=== PATIENT | male | born 1970 | race Two or more races ===

== ENCOUNTER 2024-12-23 13:32 | Outpatient (AMB) | payer MEDICARE, MEDICAID, SELFPAY ==
--- OUTSIDE RECORDS SUMMARY | 2024-12-22 13:15 | XMS_ITS | Encounter Summary ---
Author Organization [facility] Address [address] [place] [address] Care Team Providers Care Auto Body Mechanic Name Role Phone Charlotte Galaviz MD Primary Care Prov ider Reason for Referral * Consultation (Routine) - Denied Specialty Diagnoses / Procedures Referred By Contsita t Referred To Contact Gastroenterology Diagnoses Screening for malignant neoplasm of colon Brina Walker PA [address] [place] [address] Phone: tel: fax: Gastroenterology [facility] 175 [facility] [address] [address] Phone: tel: fax: Referral ID Status Reason Start Date Expiration Date V isits Requested Visits Authorized [id number] Denied Specialty Services Required 12/22/2024 12/22/2025 1 0 Reason for Visit * Reason Comments Follow-up 6 month htn f/u Encounter Details Date Type Department Care Team ([facility] st Contact Info) Description 12/22/2024 1:15 PM EST Office Visit Adult Medicine [address] [phone] Brina Walker PA [address] [place] [address] Primary hypertension (Primary Dx); Mixed hyperlipidemia; Gastroesophageal reflux disease, unspecified whether esophagitis present; Screening for malignant neoplasm of colon Social History Tobacco Use Types Packs/Day Years Used Date Smoking Tobacco: Never Smokeless Tobacco: Never Alcohol Use Standard Drinks/Week Comments No 0 (1 standard drink = 0.6 oz pur e alcohol) Housing Instability Answer Date Recorde d Are you worried that in the next 2 months you may not have stable housing? No 09/09/2024 Food Access & Nutrition Answer Date Rec orded Do you have access to a vari ety of food including fruits and vegetables? Yes 09/09/2024 Health Literacy Answer Date Recorded How often do you need to hav e someone help you when you read instructions, pamphlets, or other written material from your doctor or pharmacy? Never 09/09/2024 Caregiver: How often do you need to have someone help you when you read instructions, pamphlets, or other written material from your doctor or pharmacy? Not on file 09/09/2024 Financial Risk Answer Date Recorded How hard is it for you to pa y for the very basics like food, housing, medical care, and air conditioning / heating? Not very hard 09/09/2024 Transportation Answer Date Recorded Has the lack of transportati on kept you from meetings, work, or from getting things needed for daily living? No Has the lack of transportati on kept you from medical appointments or from getting medications? No 09/09/2024 Social Isolation Answer Date Recorded How often do you feel lonely or isolated from th ose around you? Never 09/09/2024 Food Risk Answer Date Recorded Within the past 12 months we worried whether our food would run out before we got money to buy more. Never true 09/09/2024 Within the past 12 months th e food we bought just didn't last and we didn't have money to get more. Never true 09/09/2024 Dependent Care Answer Date Recorded Do you need help finding or paying for care for your loved ones. For example, child care sitter or elderly care for an older adult? No 09/09/2024 Education Answer Date Recorded Do you think completing more education or training, like finishing a GED, going to college, or learning a trade, would be helpful for you? No 09/09/2024 Employment and Income Answer Date Recor ded During the last four weeks, have you been actively looking for work? No 09/09/2024 Living Situation Answer Date Recorded What is your living situation? Unrecognized valu e 09/09/2024 Sex and Gender Information Value Date Recorded Sex Assigned at Not on file Legal Sex Male 4:48 PM EST Gender Identity Not on file Sexual Orientation Not on file documented as of this encounter Last Filed Vital Signs Vital Sign Reading Time Taken Comments Blood Pressure 139/79 12/22/2024 1:16 PM EST Pulse 72 12/22/2024 1:16 PM EST Temperature 35.7 C (96.3 F) 12/22/2024 1:16 PM EST Respiratory Rate 16 12/22/2024 1:16 PM EST Oxygen Saturation 97% 12/22/2024 1:16 PM EST Inhaled Oxygen Concentration - - Weight 70.2 kg (154 lb 12.8 oz) 12/22/2024 1:16 PM EST Height 167.6 cm (5' 6 ) 12/22/2024 1:16 PM EST Body Mass Index 24.99 12/22/2024 1:16 PM EST documented in this encounter Patient Instructions * Attachments The following attachments cannot be sent through Care Everywhere. * Healthy Diet: Heart (Barbadian) documented in this encounter Progress Notes * APARNA Hopkins - 12/22/2024 1:15 PM EST CHIEF COMPLAINT: Follow-up (6 month htn f/u) IDENTIFIER: Valdemar Barroso is a 54 y.o. old male. HPI: Valdemar presents today for reevaluation and management of hypertension, hyperlipidemia, and GERD. His medication regimen includes verapamil 180 mg daily, pravastatin 40 mg daily, pantoprazole 40 mg daily and aspirin 81 mg and he reports compliance with medications. Most recent LDL cholesterol is subo ptimally controlled with most recent value of 129. Lab work is currently up to date. Valdemar is not regularly checking blood pressures at home. Denies nausea, vomiting, fever, chills, chest pain, shortness of breath, abdominal pain, diarrhea, constipation, headache, nosebleeds, changes in vision, dizziness, or palpitations. He is up to date with eye services and sees [facility] ([place], [place]). He is notformally exercising regularly, but notes that he is very active and often playing with his grandson. His diet is as shown as below: Breakfast: Eggs with crackers. Coffee with sugar Lunch: Fruit Dinner (3PM): Rice, beans, pork, wings Snacks: nothing Drinks: Water. Coca Cola 1 can daily. No juice. No alcohol. No energy drinks. ROS: GENERAL: No malaise, significant weight loss or fever HEENT: No changes in hearing or vision, nose bleeds or other nasal problems RESPIRATORY: No cough, wheezing or shortness of breath CARDIOVASCULAR: No chest pain, leg swelling or palpitations GI: No abdominal discomfort, blood in stools or black stools ENDOCRINE: No cold or heat intolerance, polyuria, polydipsia and goiter MUSCULOSKELETAL: No joint pain or swelling, back pain, or muscle pain. NEURO: No persistent headache, syncope, seizures, weakness or numbness PAST MEDICAL HISTORY: Patient Active Problem List Diagnosis Date Noted Overactive bladder 10/04/2020 Normocytic anemia 12/23/2018 Occipital neuralgia of left side 11/21/2018 DJD (degenerative joint disease), lumbar 11/21/2018 Bilateral shoulder pain 11/21/2018 Bilateral hip pain 11/21/2018 GERD (gastroesophageal reflux disease) 07/28/2016 Chronic non-specific white matter lesions on MRI 05/08/2016 Erectile dysfunction 11/01/2015 Anxiety 12/08/2011 Depression 10/31/2011 HTN (hypertension) 06/12/2011 Hyperlipidemia 02/27/2011 Neck pain 08/17/2008 Headache 08/17/2008 Brain concussion 08/17/2008 SOCIAL HISTORY: Social History Tobacco Use Smoking status: Never Smokeless tobacco: Never Substance Use Topics Alcohol use: No FAMILY HISTORY: Family Status Relation Name Status Mother Alive DM, depression Father Alive DM, depression Sister Alive Daughter Alive congenital heart problems Son Alive Daughter Alive No partnership data on file Family History[1] ACTIVE MEDICATIONS: Medications Taking[2] ALLERGIES: Patient has no known allergies. PHYSICAL EXAM: Blood pressure 139/79, pulse 72, temperature 35.7 ??C (96.3 ??F), temperature source Temporal, resp. rate 16, height 1.676 m (66 ), weight 70.2 kg (154 lb 12.8 oz), SpO2 97%. Body mass index is 24.99kg/m??. BMI is 18.5 to 24.9 (within the normal range) and will be followed APPEARANCE: Alert and in no acute distress EYES: EOMI. No papilledema HEART: RRR with normal S1 and S2, no murmurs, no gallops, NECK: No bruits LUNG: clear to auscultation ABDOMEN: soft, non-tender, without organomegaly or palpable masses EXTREMITIES: Extremities warm and well perfused without clubbing, cyanosis, or edema NEURO: Awake, alert and oriented x 3 LABS: Lab Results Component Value Date NA 139 12/15/2024 K 4.0 12/15/2024 CL 105 12/15/2024 CO2 28 12/15/2024 GLUCOSE 90 12/15/2024 BUN 14 12/15/2024 CREATININE 1.00 12/15/2024 CALCIUM 9.0 12/15/2024 PROT 7.1 12/15/2024 ALBUMIN 4.1 12/15/2024 BILITOT 0.4 12/15/2024 AST 28 12/15/2024 ALT 40 12/15/2024 ALKPHOS 67 12/15/2024 EGFR 89 12/15/2024 Lab Results Component Value Date CHOL 201 (H) 12/15/2024 TRIG 132 12/15/2024 HDL 46 12/15/2024 LDLCALC 129 (H) 12/15/2024 VLDL 26.4 12/15/2024 NONHDLC 155 (H) 12/15/2024 CHOLHDL 4.4 12/15/2024 IMPRESSION: 1. Primary hypertension 2. Mixed hyperlipidemia 3. Gastroesophageal reflux disease, unspecified whether esophagitis present 4. Screening for malignant neoplasm of colon PLAN: . Primary hypertension/hyperlipidemia/GERD: Patient's hypertension is well controlled with blood pressure as shown above. LDL cholesterol is suboptimally controlled with goal of less than 160 and goal of 100 if on cholesterol lowering medication. Current regimen includes verapamil 180 mg daily, pravastatin 40 mg daily, pantoprazole 40 mg daily and aspirin 81 mg and no changes have been made. Valdemar has been encouraged to follow a diet low in saturated fat, low in carbohydrates, and low in sodium. He has been encouraged to try to get 30 minutes of exercise 4 to 5 days a week to their tolerance. Patient is educated to call the office if he develops headaches, nosebleeds, chest pain, palpi tations, changes in vision or if his blood pressure is greater than 140/90 for 3 consecutive days, as he should be seen sooner than routine follow-up in office. He is educated to report to the ED if his blood pressure is greater than 140/90 and there are associated symptoms of chest pain, shortnessof breath, palpations, or abrupt changes in vision. If blood pressure is <100/60 patient should hold verapamil. His reflux seems to be well-controlled on his pantoprazole 40 mg. No new changes made today. He understands to avoid his food triggers. Patient will require a 6 month follow up in office with primary care provider for re-evaluation and management of hypertension. Patient's questions t chad answered to the best of my ability. Patient understands and agrees to this plan and acknowledges to contact me with any additional questions or concerns. Myself and my colleagues maintained a long-term, longitudinal relationship with this patient, overseeing care of chronic conditions including hypertension, hyperlipidemia, and GERD. This care relationship has significantly influence my decision making and treatment plans during today's encounter. 4. Due for colonoscopy. Patient agrees to have this completed. Referral placed. Medication and lab orders: Orders Placed This Encounter Procedures Ambulatory referral to Gastroenterology AMB REFERRAL TO GASTROENTEROLOGY Brina Walker PA-C on 12/22/2024 at 1:30 PM EST [1] Family History Problem Relation Name Age of Onset Other (Other: renal issues) Mother Diabetes Father [2] Outpatient Medications Marked as Taking for the 12/22/24 encounter (Office Visit) with APARNA Hopkins Medication Sig Dispense Refill aspirin 81 mg EC tablet TAKE 1 TABLET BY MOUTH EVERY DAY 90 tablet 0 buPROPion XL (WELLBUTRIN XL) 300 mg 24 hr tablet Take 1 tablet (300 mg total) by mouth 1 (one) timeeach day in the morning. clotrimazole (LOTRIMIN) 1 % cream APPLY TOPICALLY TO THE AFFECTED AREA TWICE DAILY 90 g 0 diclofenac (VOLTAREN) 1 % topical gel Apply 4 g topically 2 (two) times a day if needed (hip pain).100 g 1 hydrOXYzine pamoate (VISTARIL) 25 mg capsule lamoTRIgine (LaMICtal) 25 mg tablet Take 1 tablet (25 mg total) by mouth. oxyCODONE-acetaminophen (PERCOCET) 5-325 mg per tablet Take 1 tablet by mouth. pantoprazole (PROTONIX) 40 mg EC tablet TAKE 1 TABLET BY MOUTH DAILY 90 tablet 0 pravastatin (PRAVACHOL) 40 mg tablet TAKE 1 TABLET BY MOUTH DAILY 90 tablet 0 SUMAtriptan (IMITREX) 50 mg tablet May repeat dose once after 2 hours, if needed. traZODone (DESYREL) 150 mg tablet 1 tablet (150 mg total). verapamil SR (CALAN-SR) 180 mg CR tablet TAKE 1 TABLET BY MOUTH DAILY 90 tablet 1 zolpidem (AMBIEN) 10 mg tablet Take by mouth. documented in this encounter Plan of Treatment Upcoming Encounters Date Type Department Care Team (Late st Contact Info) Description 06/22/2025 2:30 PM EDT Office Visit Adult Medicine [address] [phone] Charlotte Galaviz MD [address] [place] [address] Scheduled Referrals Name Type Priority Associated Diagnoses Order Schedule Ambulatory referral to Gastroenterology Outpatient Referral Routine Screening for malignant neoplasm of colon 1 Occurrences starting 12/22/2024 until 12/22/2025 documented as of this encounter Visit Diagnoses Diagnosis Primary hypertension- Primary Unspecified essential hypertension Mixed hyperlipidemia Gastroesophageal reflux disease, unspecified whether esophagitis present Screening for malignant neoplasm of colon documented in this encounter Historical Medications * This list may reflect changes made after this encounter. oxyCODONE-acetami nophen (PERCOCET) 5-325 mg per tablet Take 1 tablet by mouth. 12/19/2024 added in this encounter Additional Health Concerns Assessment Noted Time PHQ-9 Depression Total Score: 0 09/10/19 25 9:10 AM EDT documented as of this encounter Care Teams Auto Body Mechanic Relationship Specialty Start Date End Date Charlotte Galaviz MD [address] [place] [address] PCP - General 01/23/22 documented as of this encounter
--- NOTE | 2024-12-23 13:37 | A.PHYSOV ---
Vital Signs 12/23/24 13:38 Height 5 ft 6 in Weight 154 lb BMI 24.9 Intake Visit Reasons: 3M FUV and F/U after injection 10/20/2024 Intake Note: Patient is a 54 year old male in office today for a 3 month narcotic contract follow up and follow up after injection 10/20/24 Caudal Epidural Injection. Patient is now having right hip pain. Mortgage Manager Required: No Allergies No Known Allergies Allergy (Verified 12/23/24 13:37) HPI Comments Details: History of Present Illness The patient is a 54-year-old male presenting with chronic lower back pain and lumbar radiculitis. The condition has been managed with oxycodone, providing a 60 to 70% reduction in pain, which has improved his quality of life and functional abilities. He has been receiving lumbar epidural, caudal and L5 transforaminal injections, which have been effective in providing pain relief. The most recent lumbar sacral spine MRI, dated April 05, 2018, showed L5-S1 neuroforaminal narrowing and disc degeneration, as well as narrowing of both neural foramina at the L4-L5 level. The patient was last seen on October 20, 2024, when he received a repeat caudal epidural injection. Overall he is feeling better. He reports persistent pain on the right side, exacerbated by walking, and is considering further injections to manage this. He is up-to-date on his pain medication. Prescription monitoring report was reviewed. Patient continues to performed physician guided home exercises in addition to utilization of pain medications. Right-sided buttock level of pain 6/10 at this time. I reviewed his notes from our practice. Reviewed independently images of the lumbosacral spine MRI described below. Reviewed primary care notes. Pain Description - Onset: Chronic pain with ongoing management - Quality: Severe pain managed with medication - Location: Lower back, with right-sided exacerbation - Radiation: Pain radiates down the right side - Exacerbating factors: Walking increases pain - Relieving factors: Oxycodone and injections provide relief Results - MRI (April 05, 2018): L5-S1 neuroforaminal narrowing, disc degeneration, L4-L5 foraminal narrowing [facility] Medical History (Updated 12/23/24 @ 13:49 by Curt Arciniega DO) Spinal stenosis, lumbar region with neurogenic claudication Lumbar radiculitis Surgical History History of shoulder surgery (Unknown) History of knee surgery (Unknown) Social History Alcohol intake: current Alcohol intake frequency: does not drink Patient Tobacco Use Status: Never used Tobacco Current occupational status: unemployed Review of Systems Narrative Review of Systems Lower back pain, bilateral leg pain, right worse than left, denies change in bowel bladder habits, denies fever or chills, denies uncontrolled depression or suicidal ideation Physical Exam Exam Exam: Physical Exam Patient appears to be in no acute distress, appropriately conversant oriented. He ambulates without antalgia and was able to perform heel walk and toe walk. Dural tension signs were negative. SI provocative maneuvers were negative. Tenderness with palpation over of both gluteus medius muscles, right worse than left. Neurological examination was nonfocal. Patient demonstrated no upper motor neuron signs. Lumbar extension was restricted. Vital Signs: BMI result Body Mass Index 24.9 Assessment & Plan Assessment & Plan (1) Lumbar radiculitis: Code(s): M54.16 - Radiculopathy, lumbar region Category: Medical (2) Spinal stenosis, lumbar region with neurogenic claudication: Code(s): M48.062 - Spinal stenosis, lumbar region with neurogenic claudication Category: Medical Plan Pain Management - Affect: Pain impacts quality of life and function positively with treatment - Analgesia: Oxycodone provides 60-70% pain reduction - Adverse Effects: None reported - Activities of Daily Living: Improved ability to function - Aberrant Drug Related Behaviors: None reported, patient is compliant with medication use Plan Patient was informed and verbally consented to the use of an ambient scribe for clinic note documentation during this visit. 1. Chronic Lumbar Radiculitis The patient will continue with oxycodone for pain management, which has been effective in reducing pain by 60-70%. Further lumbar epidural injections are planned, with a bilateral L5 transforaminal injection scheduled after the holidays to address persistent right-sided pain. Approval from [facility] insurance is required for the procedure, and scheduling will be coordinated with [facility]. Risks and benefits of the procedure were discussed with the patient. Potential alternative measures were also discussed. Patient understands that the procedure is completely elective. Potential side effects associated with injectable medications were discussed. All questions were answered to the patient's satisfaction. 2. Chronic Lower Back Pain The patient will continue with current pain management strategies, including oxycodone and periodic injections, to maintain pain relief and functional improvement. The plan includes monitoring the effectiveness of these interventions and adjusting as necessary based on the patient's response and insurance approvals. Discussion Notes During the visit, we discussed the continuation of oxycodone for pain management, which has been effective in reducing pain by 60-70%. We also planned for further lumbar epidural injections, specifically a bilateral L5 transforaminal injection, to be scheduled after the holidays. I explained the need for insurance approval from [facility] and the coordination required with [facility] for the procedure. Patient Instructions - Continue taking oxycodone as prescribed for pain management. - Schedule and attend the bilateral L5 transforaminal injection after the holidays. - Ensure insurance approval is obtained for the procedure. - Follow up in three months for a routine check-up. Orders: Referrals Physiatry Procedure Notification M48.062 - Spinal stenosis, lumbar region with neurogenic claudication, M54.16 - Radiculopathy, lumbar region Coding Level of Care Code Est Pt Level 3 (99349) Complex EM visit Add On G2211 Diagnoses Lumbar radiculitis M54.16 Spinal stenosis, lumbar region with neurogenic claudication M48.062
[2024-12-23 13:38] VITALS: BMI 24.9
--- OUTSIDE RECORDS SUMMARY | 2024-12-24 06:54 | XMS_ITS | Encounter Summary ---
Author Organization [facility] Address [address] [place] [address] Care Team Providers Care Regional Flatbed Truck Driver Name Role Phone Charlotte Galaviz MD Primary Care Prov ider Encounter Details Date Type Department Care Team ([facility] Contact Info) Description 12/16/2024 Results Follow-Up Adult Medicine [address] [phone] Charlotte Galaviz MD [address] [place] [address] Social History Tobacco Use Types Packs/Day Years [...] your loved ones. For example, child care center assistant director or elderly care for an older adult? [...] on file documented as of this encounter Plan of Treatment Upcoming Encounters Date Type Department Care Team (Late st Contact Info) Description 06/22/2025 2:30 PM EDT Office Visit Adult Medicine [address] [phone] Charlotte Galaviz MD [address] [place] [address] documented as of this encounter Visit Diagnoses Not on filedocumented in this encounter Additional Health Concerns Assessment Noted Time PHQ-9 Depression Total Score: 0 09/10/19 25 9:10 AM EDT documented as of this encounter Care Teams Regional Flatbed Truck Driver Relationship Specialty Start Date End Date Charlotte Galaviz MD [address] [place] [phone] PCP - General 01/23/22 documented as of this encounter
--- OUTSIDE RECORDS SUMMARY | 2024-12-24 06:55 | XMS_ITS | Clinical Summary ---
Author Organization [facility] [address] [place] [address] [place] [phone] Phone Care Team Providers Care Deputy General Counsel Name Role Phone Charlotte Galaviz MD Primary Care Prov ider Allergies No known active allergies Medications zolpidem (AMBIEN) 10 mg tablet Take by mouth. Active traZODone (DESYREL) 150 mg tablet 1 tablet (150 mg total). 03/13/19 18 Active SUMAtriptan (IMITREX) 50 mg tablet May repeat dose once after 2 hours, if needed. 07/25/19 23 Active lamoTRIgine (LaMICtal) 25 mg tablet Take 1 tablet (25 mg total) by mouth. Active hydrOXYzine pamoate (VISTARIL) 25 mg capsule 06/13/19 24 Active buPROPion XL (WELLBUTRIN XL) 300 mg 24 hr tablet Take 1 tablet (300 mg total) by mouth 1 (one) time each day in the morning. 07/15/19 24 Active diclofenac (VOLTAREN) 1 % topical gel Apply 4 g topically 2 (two) times a day if needed (hip pain). 100 g 1 06/19/19 25 Active verapamil SR (CALAN-SR) 180 mg CR tablet TAKE 1 TABLET BY MOUTH DAILY 90 tablet 1 08/19/19 25 Active pravastatin (PRAVACHOL) 40 mg tablet TAKE 1 TABLET BY MOUTH DAILY 90 tablet 11/04/19 25 Active pantoprazole (PROTONIX) 40 mg EC tablet TAKE 1 TABLET BY MOUTH DAILY 90 tablet 11/04/19 25 Active clotrimazole (LOTRIMIN) 1 % cream APPLY TOPICALLY TO THE AFFECTED AREA TWICE DAILY 90 g 11/28/19 25 Active aspirin 81 mg EC tablet TAKE 1 TABLET BY MOUTH EVERY DAY 90 tablet 12/23/19 25 Active oxyCODONE-acet aminophen (PERCOCET) 5-325 mg per tablet Take 1 tablet by mouth. 12/20/19 25 Active aspirin 81 mg EC tablet TAKE 1 TABLET BY MOUTH EVERY DAY 90 tablet 07/03/19 25 025 Discontinued clotrimazole (LOTRIMIN) 1 % cream Apply topically 2 (two) times a day for 28 days. 90 g 09/10/19 25 025 Discontinued Active Problems Problem Noted Date Diagnosed Date Overactive bladder 10/04/2020 Overview (12/23/2023): Follows with urology Normocytic anemia 12/23/2018 Overview (12/23/2023): Normal iron studies, B12 and folate. 12/2018 likely from chronic disease. Occipital neuralgia of left side 11/21/2018 Overview (12/23/2023): Follows with neurology, pt declines nerve block. DJD (degenerative joint disease), lumbar 019 Overview (12/23/2023): Mild s/p MRI 04/2018 Bilateral shoulder pain 11/21/2018 Overview (12/23/2023): Normal xrays 02/2017 Bilateral hip pain 11/21/2018 Overview (12/23/2023): Normal x rays 11/2016 GERD (gastroesophageal reflux disease) 7 Chronic non-specific white matter lesions on MRI 05/08/2016 Erectile dysfunction 11/01/2015 Anxiety 12/08/2011 Overview (12/23/2023): F/u psych @ [place] Depression 10/31/2011 HTN (hypertension) 06/12/2011 Assessment & Plan (06/18/2024 4:17 PM EDT): Well controlled on Verapamil. Will continue same medication. Will check a CMP, lipid panel and TSH before his next visit. Orders: Comprehensive metabolic panel; Future Lipid panel with reflex to direct LDL; Future Thyroid stimulating hormone; Future Hyperlipidemia 02/27/2011 Assessment & Plan (06/18/2024 4:17 PM EDT): Currently on Pravastatin. Will continue same medication. New lipid panel before his next visit. Orders: Comprehensive metabolic panel; Future Lipid panel with reflex to direct LDL; Future Thyroid stimulating hormone; Future Neck pain 08/17/2008 Headache 08/17/2008 Brain concussion 08/17/2008 Encounters Date Type Department Care Team Description 12/22/2024 1:15 PM EST Office Visit Adult Medicine [address] [phone] Brina Walker PA Primary hypertension (Primary Dx); Mixed hyperlipidemia; Gastroesophageal reflux disease, unspecified whether esophagitis present; Screening for malignant neoplasm of colon 12/16/2024 Results Follow-Up Adult [address] [phone] Charlotte Alford MD 12/15/2024 8:55 AM EST Lab Draw Station [address] Primary hypertension; Mixed hyperlipidemia from Last 3 Months Immunizations Immunization Administration Dates Next Due Influenza trivalent, with pr eservative (Fluzone; Afluria) 6mo and older 12/14/2014,11/19/2013,10/31/2011 Pneumococcal polysaccharide 23 valent (Pneumovax 23) 2yo and older 06/05/2011 Tdap Tetanus diptheria acell ular pertussis (Boostrix; Adacel) 7yo and older 05/18/2021,02/27/2011,02/16/2007 Surgical History Surgery Date Site/Laterality Comments COLONOSCOPY 06/04/2014 PROCEDURE: HISTORICAL COLONOSCOPY; COMMENT: normal KNEE SURGERY Left PROCEDURE: HISTORICAL KNEE SURGERY ESOPHAGOGASTRODUODENOSCOPY 08/01/2018 PROCEDURE: [place] ESOPHAGOGASTRODUODENOSCOPY TRANSORAL DIAGNOSTIC; COMMENT: Dr. Martinez -normal Medical History Medical History Date Comments Anxiety 12/08/2011 DX:Anxiety Depression 10/31/2011 DX:Depression HTN (hypertension) 06/12/2011 DX:HTN (hyper tension) Historical Medical DX 02/27/2011 DX:Hyperli pidemia LDL goal < 130 Prostatism 03/10/2014 DX:Prostatism Left knee pain 11/01/2015 DX:Left knee chiquita n Erectile dysfunction 11/01/2015 DX:Erectile dysfunction Chronic non-specific white m atter lesions on MRI 05/08/2016 DX:Chronic non-specific whit e matter lesions on MRI GERD (gastroesophageal reflu x disease) 07/28/2016 DX:GERD (gastroesophageal re flux disease) Occipital neuralgia of left side 11/21/2018 DX:Occipital neuralgia of left side; COMMENT: Follows with neurology, pt declines nerve block. DJD (degenerative joint dise ase), lumbar 11/21/2018 DX:DJD (degenerative joint d isease), lumbar Family History Medical History Relation Name Comments Diabetes Father Other: renal issues Mother Relation Name Status Comments Daughter 1 Alive congenital hear t problems Daughter 2 Alive Father Alive DM, depression Mother Alive DM, depression Sister Alive Son Alive Social History Tobacco Use Types Packs/Day Years Used Date Smoking Tobacco: Never Smokeless Tobacco: Never Tobacco Cessation:Counseling Given: Not Answered Alcohol Use Standard Drinks/Week Comments No 0 [...] care for your loved ones. For example, early childhood specialist or elderly care for an older adult? [...] on file Sexual Orientation Not on file Obstetrics History Last Filed Vital Signs Vital Sign Reading [...] Mass Index 24.99 12/22/2024 1:16 PM EST Plan of Treatment Upcoming Encounters Date Type Department Care Team (Late st Contact Info) Description 06/22/2025 2:30 PM EDT Office Visit Adult Medicine [facility] [address] [place] [address] Charlotte Galaviz MD [address] [place], [place] Health Maintenance Due Date Last Done Comments Hepatitis B Vaccines (1 of 3 - 19+ 3-dose series) 1989 Pneumococcal Vaccine: 50+ Years (2 of 2 - PCV) 2020 06/05/2011 Zoster Vaccines (1 of 2) 2020 Colorectal Cancer Screening: Colonoscopy 06/04/2024 06/04/2014, 06/04/2014 Influenza Vaccine (#1) 2025 5, 11/19/2013, 10/31/2011 Postponed from 10/06/2024 (Patient Refused) Social Influencers of Health Screening 09/09/2025 09/09/2024, 08/31/2023 Hypertension/CHF/CAD Annual BMP Blood Test 12/15/2025 12/15/2024, 09/04/2023 Cholesterol Screening (Lipid Panel) 12/15/2029 12/15/2024, 09/04/2023 DTaP,Tdap,and Td Vaccines (4 - Td or Tdap) 05/19/2031 05/18/2021, 02/27/2011, 02/16/2007 Medicare Annual Wellness Visit 12/23/2035 Postponed from 01/14 (Not clinically appropriate to address at this time) RSV Immunization Adult Patients (1 - 1-dose 75+ series) 2045 COVID-19 Vaccine Discontinued 06/18/2020, 05/28/2020 HIV Screening Addressed 01/23/2022 Overridden wit h the intention of not completing the topic Hepatitis C Screening Addressed 01/23/2022 Overri dden with the intention of not completing the topic Depression Screening Completed 09/09/2024 HIB Vaccines Aged Out No longer eligi ble based on patient's age to complete this topic HPV Vaccines Aged Out No longer eligi ble based on patient's age to complete this topic Hepatitis A Vaccines Aged Out No long er eligible based on patient's age to complete this topic IPV Vaccines Aged Out No longer eligi ble based on patient's age to complete this topic MMR Vaccines Aged Out No longer eligi ble based on patient's age to complete this topic Meningococcal ACWY Vaccine Aged Out N o longer eligible based on patient's age to complete this topic Meningococcal B Vaccine Aged Out No l onger eligible based on patient's age to complete this topic RSV Immunization Patients Under 20 months Aged Out No longer eligible b ased on patient's age to complete this topic Varicella Vaccines Aged Out No longer eligible based on patient's age to complete this topic Procedures Procedure Name Priority Date/Time Associated Diagnosis Comments COMPREHENSIVE METABOLIC PANEL Routine 12/15/2024 8:59 AM EST Primary hypertension Mixed hyperlipidemia LIPID PANEL WITH REFLEX TO DIRECT LDL Routine 12/15/2024 8:59 AM EST Primary hypertension Mixed hyperlipidemia THYROID STIMULATING HORMONE Routine 12/15/2024 8:59 AM EST Primary hypertension Mixed hyperlipidemia HM COLONOSCOPY Routine 06/04/2014 from Last 3 Months or Most Recently Relevant to Health Maintenance Results * (ABNORMAL) Lipid panel with reflex to direct LDL (12/15/2024 8:59 AM EST) Cholesterol 201(H) 0 - 200 mg/dL LAB CHEMISTRY METHOD 12/15/2024 3:03 PM EST [facility] Triglycerides 132 0 - 150 mg/dL LAB CHEMISTRY METHOD 12/15/2024 3:03 PM EST [facility] HDL 46 >=40 mg/dL LAB CHEMISTRY METHOD 12/15/2024 3:03 PM EST [facility] LDL Calculated 129(H) 0 - 100 mg/dL LAB CHEMISTRY METHOD 12/15/2024 3:03 PM EST [facility] Comment:Estimated LDL Calcul ated using equation: Total cholesterol - HDL cholesterol - (Triglycerides/5) VLDL Cholesterol Rick 26.4 mg/dL LAB CHEMISTRY METHOD 12/15/2024 3:03 PM EST [facility] Non HDL Chol. (LDL+VLDL) 155(H) <145 mg/dL LAB CHEMISTRY METHOD 12/15/2024 3:03 PM EST [facility] Chol/HDL Ratio 4.4 0.0 - 4.4 LAB CHEMISTRY METHOD 12/15/2024 3:03 PM EST [facility] Blood Venous blood specimen / Unknown Venipuncture / Unknown 12/15/2024 8:59 AM EST 12/15/2024 8:59 AM EST Charlotte Galaviz MD LAB BLOOD ORDERABL ES Final Result [facility] [address] [place] [address], [place] [phone] * Thyroid stimulating hormone (12/15/2024 8:59 AM EST) TSH 0.44 0.40 - 4.00 mcIU/mL LAB CHEMISTRY METHOD 12/15/2024 5:16 PM EST [facility] Blood Venous blood specimen / Unknown Venipuncture / Unknown 12/15/2024 8:59 AM EST 12/15/2024 8:59 AM EST Charlotte Galaviz MD LAB BLOOD ORDERABL ES Final Result [facility] [address] [place] [address], [place] [phone] * Comprehensive metabolic panel (12/15/2024 8:59 AM EST) Sodium 139 133 - 145 mmol/L LAB CHEMISTRY METHOD 12/15/2024 3:03 PM [facility] Potassium 4.0 3.5 - 5.5 mmol/L LAB CHEMISTRY METHOD 12/15/2024 3:03 PM EST [facility] Chloride 105 96 - 110 mmol/L LAB CHEMISTRY METHOD 12/15/2024 3:03 PM [facility] CO2 28 21 - 32 mmol/L LAB CHEMISTRY METHOD 12/15/2024 3:03 PM [facility] Anion Gap 6 3 - 11 LAB CHEMISTRY METHOD 12/15/2024 3:03 PM [facility] Glucose 90 70 - 100 mg/dL LAB CHEMISTRY METHOD 12/15/2024 3:03 PM [facility] BUN 14 5 - 25 mg/dL LAB CHEMISTRY METHOD 12/15/2024 3:03 PM [facility] Creatinine 1.00 0.70 - 1.30 mg/dL LAB CHEMISTRY METHOD 12/15/2024 3:03 PM [facility] eGFR 89 >=60 mL/min/1. 73m2 LAB CHEMISTRY METHOD 12/15/2024 3:03 PM [facility] Comment:Calculation based on the Chronic Kidney Disease Epidemiology Collaboration (CKD-EPI) equation refit without adjustment for race. BUN/Creatinine Ratio 14.0 LAB CHEMISTRY METHOD 12/15/2024 3:03 PM [facility] Calcium 9.0 8.5 - 10.5 mg/dL LAB CHEMISTRY METHOD 12/15/2024 3:03 PM [facility] AST (SGOT) 28 10 - 42 unit/L LAB CHEMISTRY METHOD 12/15/2024 3:03 PM [facility] ALT (SGPT) 40 10 - 60 unit/L LAB CHEMISTRY METHOD 12/15/2024 3:03 PM [facility] Alkaline Phosphatase 67 42 - 121 unit/L LAB CHEMISTRY METHOD 12/15/2024 3:03 PM [facility] Total Protein 7.1 6.0 - 8.0 g/dL LAB CHEMISTRY METHOD 12/15/2024 3:03 PM [facility] Albumin 4.1 3.2 - 5.0 g/dL LAB CHEMISTRY METHOD 12/15/2024 3:03 PM EST [facility] ([facility] Total Bilirubin 0.4 0.0 - 1.4 mg/dL LAB CHEMISTRY METHOD 12/15/2024 3:03 PM EST [facility] Blood Venous blood specimen / Unknown Venipuncture / Unknown 12/15/2024 8:59 AM EST 12/15/2024 8:59 AM EST us Charlotte Galaviz MD LAB BLOOD ORDERABL ES Final Result [facility] ([facility]) [facility] [address] [place] [address], [place] [phone] * Colonoscopy (06/04/2014) [facility] Signature HM Colonoscopy Normal Anatomical Region Laterality Modality Other us Historical Provider HEALTH MAINTENANCE Final Result from Last 3 Months or Most Recently Relevant to Health Maintenance Insurance [employer] MEDICARE ADVANTAGE MEDICAID [place] Care Teams Deputy General Counsel Relationship Specialty Start Date End Date Charlotte Galaviz MD [address] [place] [phone] PCP - General 01/23/22
== END 2024-12-23 13:56 | disposition home or self-care (01) ==
LOC: HO.HPHYS 13:32
PROVIDERS: PCP Internal Medicine; Visit Provider Physical Medicine & Rehabilitation
DX: M54.16 Radiculopathy, lumbar region (principal); M48.062 Spinal stenosis, lumbar region with neurogenic claudication
CPT/HCPCS: 99213; G2211

== ENCOUNTER → 2024-12-23 13:32 | Outpatient (BNVA) | payer MEDICARE, MEDICAID, SELFPAY | PROVIDERS: PCP Internal Medicine; Visit Provider Physical Medicine & Rehabilitation | DX: M54.16 Radiculopathy, lumbar region (principal); M48.062 Spinal stenosis, lumbar region with neurogenic claudication; G89.29 Other chronic pain; Z79.891 Long term (current) use of opiate analgesic | CPT/HCPCS: 99212 ==

== ENCOUNTER 2025-01-05 09:55 | Day surgery (SDC) | payer MEDICARE, MEDICAID, SELFPAY ==
--- NOTE | 2024-12-30 15:04 | HO.ANESPROP2 ---
Documented by User: Niya Guerra NP 12/31/24 09:14 HPI - Anesthesia Eval Consult details Narrative: 54 yr old male for bilateral L5 Lumbar Transforaminal ERICK GERD: on PPI PMFSH Active Problems Active Problems: All Active Problems Spinal stenosis, lumbar region with neurogenic claudication (Acute) Lumbar radiculitis (Acute) Past Medical History Medical History Migraine Anxiety Depression GERD (gastroesophageal reflux disease) HLD (hyperlipidemia) BPH (benign prostatic hyperplasia) HTN (hypertension) Spinal stenosis, lumbar region with neurogenic claudication Lumbar radiculitis Surgical History Surgical History History of shoulder surgery (Unknown) History of knee surgery (Unknown) Social History Social History Alcohol intake: current Alcohol intake frequency: does not drink Patient Tobacco Use Status: Never used Tobacco Use of substances other than those prescribed or required for medical reasons: No Are you DNR?: No Advance Directives: No Advance Directives Information Provided: Yes Current occupational status: unemployed Meds Allergies Allergy/AdvReac Type Severity Reaction Status Date / Time No Known Allergies Allergy Verified 01/05/25 11:40 Home Medications ?Medication ?Instructions ?Recorded ?Confirmed ?Last Taken ?Type aspirin 81 mg tablet,delayed 81 mg PO DAILY 12/22/24 01/05/25 Unknown History release bupropion HCl 300 mg 24 hr tablet, 300 mg PO QAM 12/22/24 01/05/25 Unknown History extended release clotrimazole 1 % topical cream 1 appl topical BID 12/22/24 01/05/25 Unknown History lamotrigine 100 mg tablet 100 mg PO DAILY 12/22/24 01/05/25 Unknown History oxybutynin chloride 5 mg 5 mg PO DAILY 12/22/24 01/05/25 Unknown History tablet,extended release 24 hr oxycodone-acetaminophen 5 mg-325 1 tab PO TID 12/22/24 01/05/25 Unknown History mg tablet pantoprazole 40 mg tablet,delayed 40 mg PO DAILY 12/22/24 01/05/25 Unknown History release pravastatin 40 mg tablet 40 mg PO DAILY 12/22/24 01/05/25 Unknown History trazodone 150 mg tablet 150 mg PO BEDTIME 12/22/24 01/05/25 Unknown History verapamil 180 mg tablet,extended 180 mg PO DAILY 12/22/24 01/05/25 01/05/25 08:00 History release zolpidem 10 mg tablet 10 mg PO BEDTIME PRN Insomnia 12/22/24 01/05/25 Unknown History hydroxyzine HCl 25 mg tablet 25 mg PO BID PRN Migraine Headache 01/05/25 01/05/25 Unknown History sumatriptan succinate 01/05/25 01/05/25 Unknown History Documented by User: Roque Carpenter MD 01/05/25 12:42 PMFSH Past Medical History Medical History Migraine Anxiety Depression GERD (gastroesophageal reflux disease) HLD (hyperlipidemia) BPH (benign prostatic hyperplasia) HTN (hypertension) Spinal stenosis, lumbar region with neurogenic claudication Lumbar radiculitis Family History Family history of problems with anesthesia: No Surgical History Surgical History History of shoulder surgery (Unknown) History of knee surgery (Unknown) History of Problems with Anesthesia: No Social History Social History Alcohol intake: current Alcohol intake frequency: does not drink Patient Tobacco Use Status: Never used Tobacco Use of substances other than those prescribed or required for medical reasons: No Are you DNR?: No Advance Directives: No Advance Directives Information Provided: Yes Current occupational status: unemployed Meds Allergies Allergy/AdvReac Type Severity Reaction Status Date / Time No Known Allergies Allergy Verified 01/05/25 11:40 Home Medications ?Medication ?Instructions ?Recorded ?Confirmed ?Last Taken ?Type aspirin 81 mg tablet,delayed 81 mg PO DAILY 12/22/24 01/05/25 Unknown History release bupropion HCl 300 mg 24 hr tablet, 300 mg PO QAM 12/22/24 01/05/25 Unknown History extended release clotrimazole 1 % topical cream 1 appl topical BID 12/22/24 01/05/25 Unknown History lamotrigine 100 mg tablet 100 mg PO DAILY 12/22/24 01/05/25 Unknown History oxybutynin chloride 5 mg 5 mg PO DAILY 12/22/24 01/05/25 Unknown History tablet,extended release 24 hr oxycodone-acetaminophen 5 mg-325 1 tab PO TID 12/22/24 01/05/25 Unknown History mg tablet pantoprazole 40 mg tablet,delayed 40 mg PO DAILY 12/22/24 01/05/25 Unknown History release pravastatin 40 mg tablet 40 mg PO DAILY 12/22/24 01/05/25 Unknown History trazodone 150 mg tablet 150 mg PO BEDTIME 12/22/24 01/05/25 Unknown History verapamil 180 mg tablet,extended 180 mg PO DAILY 12/22/24 01/05/25 01/05/25 08:00 History release zolpidem 10 mg tablet 10 mg PO BEDTIME PRN Insomnia 12/22/24 01/05/25 Unknown History hydroxyzine HCl 25 mg tablet 25 mg PO BID PRN Migraine Headache 01/05/25 01/05/25 Unknown History sumatriptan succinate 01/05/25 01/05/25 Unknown History Exam Exam Date and Time: 01/05/25 Airway Mallampati Class: II TM Dist: >3cm Neck ROM: Full Heart: rrr Lungs: ctab vesicular Assessment and Plan Assessment Anesthesia Assessment: Anesthesia Plan Discussed and Chart Reviewed Final Anesthetic Review Family History of Problems with Anesthesia: No History of Problems with Anesthesia: No NPO: Yes ASA Class: II Final Preanesthetic Review: No Changes in Pt Med Stat, Meds/Allgs Chart Reviewed, Consent Obtained/Reviewed and Anes Risks/Benef Reviewed Patient Risk: Low Procedure Risk: Low Anesthetic Plan Anesthetic Plan: MAC: Disposition: Standard PACU
--- OUTSIDE RECORDS SUMMARY | 2024-12-30 18:15 | XMS_ITS | Clinical Summary ---
Author Organization [facility] [address] [place] [address] Address [address] [place] [address] Phone Care Team Providers Care Transformer Assembler Name Role Phone Charlotte Galaviz MD Primary [...] DAY 90 tablet 07/03/19 25 025 Discontinued Active Problems Problem Noted [...] Anxiety 12/08/2011 Overview (12/23/2023): F/u psych @ [place] Depression 10/31/2011 HTN (hypertension) 06/12/2011 Assessment & [...] 12/22/2024 1:15 PM EST Office Visit Adult [address] [phone] Brina Walker PA Primary hypertension (Primary Dx); Mixed hyperlipidemia; Gastroesophageal reflux disease, unspecified whether esophagitis present; Screening for malignant neoplasm of colon 12/16/2024 Results Follow-Up Adult [address] [phone] Charlotte Alford MD 12/15/2024 8:55 AM EST Lab Draw Station [address] Primary hypertension; Mixed hyperlipidemia from Last [...] PROCEDURE: HISTORICAL KNEE SURGERY ESOPHAGOGASTRODUODENOSCOPY 08/01/2018 PROCEDURE: [place] ESOPHAGOGASTRODUODENOSCOPY TRANSORAL DIAGNOSTIC; COMMENT: Dr. Martinez -normal [...] care for your loved ones. For example, childhood teacher or elderly care for an older adult? [...] 2:30 PM EDT Office Visit Adult Medicine [address] [phone] Charlotte Galaviz MD [address] [place], [place] Health Maintenance Due Date Last Done [...] mg/dL LAB CHEMISTRY METHOD 12/15/2024 3:03 PM [facility] Triglycerides 132 0 - 150 mg/dL LAB CHEMISTRY METHOD 12/15/2024 3:03 PM [facility] HDL 46 >=40 mg/dL LAB CHEMISTRY METHOD 12/15/2024 3:03 PM [facility] LDL Calculated 129(H) 0 - 100 mg/dL LAB CHEMISTRY METHOD 12/15/2024 3:03 PM [facility] Comment:Estimated LDL Calcul ated using equation: Total cholesterol - HDL cholesterol - (Triglycerides/5) VLDL Cholesterol Rick 26.4 mg/dL LAB CHEMISTRY METHOD 12/15/2024 3:03 PM [facility] Non HDL Chol. (LDL+VLDL) 155(H) <145 mg/dL LAB CHEMISTRY METHOD 12/15/2024 3:03 PM [facility] Chol/HDL Ratio 4.4 0.0 - 4.4 LAB CHEMISTRY METHOD 12/15/2024 3:03 PM [facility] Blood Venous blood specimen / Unknown Venipuncture / Unknown 12/15/2024 8:59 AM EST 12/15/2024 8:59 AM EST Charlotte Galaviz MD LAB BLOOD ORDERABL ES Final Result Performing Organization Address [facility]/ZIP Co de Phone Number [facility] [address] [place] [address], [place] [phone] * Thyroid stimulating hormone (12/15/2024 8:59 AM EST) TSH 0.44 0.40 - 4.00 mcIU/mL LAB CHEMISTRY METHOD 12/15/2024 5:16 PM [facility] Blood Venous blood specimen / Unknown Venipuncture / Unknown 12/15/2024 8:59 AM EST 12/15/2024 8:59 AM EST Charlotte Galaviz MD LAB BLOOD ORDERABL ES Final Result Performing Organization Address [facility]/ZIP Co de Phone Number [facility] [address] [place] [address], [place] [phone] * Comprehensive metabolic panel (12/15/2024 8:59 AM EST) Sodium 139 133 - 145 mmol/L LAB CHEMISTRY METHOD 12/15/2024 3:03 PM [facility] Potassium 4.0 3.5 - 5.5 mmol/L LAB CHEMISTRY METHOD 12/15/2024 3:03 PM [facility] Chloride 105 96 - 110 mmol/L LAB CHEMISTRY METHOD 12/15/2024 3:03 PM [facility] CO2 28 21 - 32 mmol/L LAB CHEMISTRY METHOD 12/15/2024 3:03 PM [facility] Anion Gap 6 3 - 11 LAB CHEMISTRY METHOD 12/15/2024 3:03 PM [facility] Glucose 90 70 - 100 mg/dL LAB CHEMISTRY METHOD 12/15/2024 3:03 PM [facility] BUN 14 5 - 25 mg/dL LAB CHEMISTRY METHOD 12/15/2024 3:03 PM [facility] Creatinine 1.00 0.70 - 1.30 mg/dL LAB CHEMISTRY METHOD 12/15/2024 3:03 PM [facility] eGFR 89 >=60 mL/min/1. 73m2 LAB CHEMISTRY METHOD 12/15/2024 3:03 PM [facility] Comment:Calculation based on the Chronic Kidney Disease Epidemiology Collaboration (CKD-EPI) equation refit without adjustment for race. BUN/Creatinine Ratio 14.0 LAB CHEMISTRY METHOD 12/15/2024 3:03 PM [facility] Calcium 9.0 8.5 - 10.5 mg/dL LAB CHEMISTRY METHOD 12/15/2024 3:03 PM [facility] AST (SGOT) 28 10 - 42 unit/L LAB CHEMISTRY METHOD 12/15/2024 3:03 PM [facility] ALT (SGPT) 40 10 - 60 unit/L LAB CHEMISTRY METHOD 12/15/2024 3:03 PM [facility] Alkaline Phosphatase 67 42 - 121 unit/L LAB CHEMISTRY METHOD 12/15/2024 3:03 PM [facility] Total Protein 7.1 6.0 - 8.0 g/dL LAB CHEMISTRY METHOD 12/15/2024 3:03 PM [facility] Albumin 4.1 3.2 - 5.0 g/dL LAB CHEMISTRY METHOD 12/15/2024 3:03 PM [facility] Total Bilirubin 0.4 0.0 - 1.4 mg/dL LAB CHEMISTRY METHOD 12/15/2024 3:03 PM EST [facility] Blood Venous blood specimen / Unknown Venipuncture / Unknown 12/15/2024 8:59 AM EST 12/15/2024 8:59 AM EST Charlotte Galaviz MD LAB BLOOD ORDERABL ES Final Result [facility] ([facility] [address] [place] [address], [place] [phone] * Colonoscopy (06/04/2014) Colonoscopy Normal Anatomical Region Laterality Modality Other us Historical Provider HEALTH MAINTENANCE Final Result from Last 3 Months or Most Recently Relevant to Health Maintenance Insurance [employer] MEDICARE ADVANTAGE MEDICAID [place] Q[place] Care Teams Transformer Assembler Relationship Specialty Start Date End Date Charlotte Galaviz MD [address] [place] [phone] PCP - General 01/23/22
--- OUTSIDE RECORDS SUMMARY | 2024-12-30 18:15 | XMS_ITS | Encounter Summary ---
Author Organization [facility] Address [address] [place] [address] Care Team Providers Care Track Sweeper Name Role Phone Charlotte Galaviz MD Primary Care Prov ider Encounter Details Date Type Department Care Team ([facility] Contact Info) Description 12/16/2024 Results Follow-Up Adult Medicine [address] [phone] Charlotte Galaviz MD [address] [place] [address] Social History Tobacco Use Types Packs/Day Years [...] your loved ones. For example, early childhood teacher or elderly care for an [...] 2:30 PM EDT Office Visit Adult Medicine [address] [phone] Charlotte Galaviz MD [address] [place] [address] documented as of this encounter Visit Diagnoses Not on filedocumented in this encounter Additional Health Concerns Assessment Noted Time PHQ-9 Depression Total Score: 0 09/10/19 25 9:10 AM EDT documented as of this encounter Care Teams Track Sweeper Relationship Specialty Start Date End Date Charlotte Galaviz MD [address] [place] [phone] PCP - General 01/23/22 documented as of this encounter
--- NOTE | ~2025-01-05 | FL_ITS ---
EXAMINATION: XR FLUOROSCOPY WITH IMAGES CLINICAL INFORMATION: Procedural guidance COMPARISON: None available. TECHNIQUE: Fluoroscopy time 17 seconds DAP: 3.4 mGycm2 Images: 1 FINDINGS: Fluoroscopy provided for procedure. There is bilateral transforaminal ERICK performed likely at the L5-S1 level FL/FL guidance in OR IMPRESSION: Fluoroscopy provided for procedure. See procedure report for details. Electronically signed by: Jonathan Teixeira MD 01/08/2025 07:56 AM [facility]
[2025-01-05 11:28] VITALS: BP 159/89; PULSE 72; RESP 14; TEMP 36.7; O2SAT 98; BMI 24.3
--- NOTE | 2025-01-05 12:00 | MHC.SHP ---
Pre-Procedural Eval Section A - 24 Hr Update-Section A only Date of Service: 01/05/25 The patient is an INPATIENT: No Changes since office visit: Yes Patient answered all questions The patient has been examined within 24 hours of the surgical procedure. The History & Physical has been completed within 30 days and I have reviewed it.: Yes Section B - Complete if H&P > 30 days Chief Complaint: Radiculopathy, lumbar region Allergies: Allergies Allergy/AdvReac Type Severity Reaction Status Date / Time No Known Allergies Allergy Verified 01/05/25 11:40 Plan I have reviewed the history and physical and performed a pertinent physical examination on my patient. No changes have occurred unless specified. Time Spent With Patient Time: Total time managing care of this patient today ____ minutes.
--- NOTE | 2025-01-05 12:01 | W.PM.OPN ---
Operative Note Operative Note Date of Service: 01/05/25 Narrative: Procedure performed: Bilateral transforaminal epidural steroid injection Preop diagnosis: Lumbar radiculitis Postop diagnosis: The same Anesthesia: Mac After informed consent was obtained, patient was placed on the procedure table in a prone position. Skin over lumbosacral area was prepped and draped in usual sterile manner. Right L5 pedicle was visualized utilizing fluoroscopy. 3.5 inch 22 gauge spinal needle was introduced percutaneously and advanced towards the pedicle at about 6 o'clock position. Once level of neural foramina was reached, needle placement was verified utilizing 3 cc of Omnipaque contrast solution. Excellent flow through the neural foramina and epidural spread was identified without evidence of vascular uptake. Total volume of 6 cc containing 2 cc of 1% lidocaine, 40 mg of triamcinolone and normal saline solution were injected after negative aspiration for blood and cerebrospinal fluid. Identical procedure was repeated on the opposite side. Radiation exposure was documented in the chart.
[2025-01-05] MEDS: Lactated Ringers 1,000 ML 100 ML IVCONT (12:14)
[2025-01-05 12:37] VITALS: BP 135/86; PULSE 81; RESP 12; TEMP 36.4; O2SAT 98
[2025-01-05 12:52] VITALS: BP 134/90; PULSE 80; RESP 16; O2SAT 97
== END 2025-01-05 13:20 | disposition home or self-care (01) ==
PROVIDERS: PCP Internal Medicine; Visit Provider Physical Medicine & Rehabilitation
PROC: (CPT 64483; principal; 2025-01-05 11:30)
DX: M54.16 Radiculopathy, lumbar region (principal); M48.062 Spinal stenosis, lumbar region with neurogenic claudication; G89.29 Other chronic pain; M54.50 Low back pain, unspecified; M25.551 Pain in right hip; R26.2 Difficulty in walking, not elsewhere classified; Z79.891 Long term (current) use of opiate analgesic; Z98.890 Other specified postprocedural states; Z56.0 Unemployment, unspecified
CPT/HCPCS: 64483; J2003; J2250; J2704; J3010; J3301; Q9967

== ENCOUNTER → 2025-01-05 09:55 | Outpatient (BNV) | payer MEDICARE, MEDICAID, SELFPAY | PROVIDERS: PCP Internal Medicine; Visit Provider Physical Medicine & Rehabilitation | DX: M54.16 Radiculopathy, lumbar region (principal) | CPT/HCPCS: 64483 ==